=== PATIENT | female | born 1960 | race African-American/Black ===

== ENCOUNTER 2017-02-14 14:58 | Inpatient (IN) | payer MEDICAID ==
[~2017-02-14] VITALS: Ht 170.2 cm; Wt 80.6 kg
[~2017-02-14 14:58] MED LIST: METF-312 PO; QUET300T3
[2017-02-14] MEDS ORDERED: SODIUM CHLORIDE 0.9% 1,000 ML IVB ONE (15:26)
[2017-02-14 16:06] LABS: Hematocrit 47.2 % (36.0-46.0); Hemoglobin 15.1 g/dL (12.2-16.2); Mean Corpuscular Hemoglobin 27.5 pg (28.0-32.0); Mean Corpuscular Hgb Conc. 31.9 g/dL (32.0-36.0); Mean Platelet Volume 9.6 fL (7.4-10.4); Platelet Count (auto) 245 10^3/uL (140-450); Red Cell Distribution Width 15.6 % (11.6-16.0); SUSPECT VIEW TRANSMISSION; White Blood Cell 18.2 10^3/uL (4.4-10.8)
[2017-02-14 16:24] LABS: Acetaminophen < 2.0 ug/mL (10-30); Salicylate 1.8 mg/dL (2.8-20.0)
[2017-02-14 16:26] LABS: Alkaline Phosphatase 172 U/L (45-117); Anion Gap 18 (5-15); Aspartate Aminotransferase 65 U/L (15-37); BUN/Creatinine Ratio 15.6; Bilirubin, Total 0.9 mg/dL (0.2-1.0); Blood Urea Nitrogen 31 mg/dL (7-18); Carbon Dioxide 16 mmol/L (21-32); Chloride 111 mmol/L (98-107); GFR African American 33 mL/min; GFR Non-African American 27 mL/min; Magnesium 3.2 mg/dL (1.6-2.6); Metamyelocytes % 0; Myelocytes % 0; Potassium 4.6 mmol/L (3.5-5.1); Promyelocytes % 0; Reactive Lymphocytes 0; Sodium 145 mmol/L (136-145); Total Protein 8.2 g/dL (6.4-8.2)
[2017-02-14 16:30] LABS: Urine Bilirubin Negative (Negative); Urine Color Yellow (Yellow); Urine Hyaline Cast FEW /lpf (0 - 2); Urine Nitrite Negative (Negative); Urine RBC 7 /hpf (0 - 4); Urine Squamous Epithelial Cell FEW /hpf (<5); Urine Urobilinogen Normal (Negative); Urine pH 5.5 (5.0-8.0)
[2017-02-14 16:34] LABS: Urine Blood 2+ /uL (Negative); Urine Glucose 4+ mg/dL (Normal); Urine Ketone 1+ (Negative)
[2017-02-14 16:57] LABS: INR 1.04 (0.9-1.15); Partial Thromboplastin Time 20.7 sec (22.64-33.71); Prothrombin Time 11.2 sec (9.37-12.3)
[2017-02-14 17:12] LABS: Glucose 599 mg/dL (74-106)
[2017-02-14 17:50] LABS: Platelet Estimate Adequate
[2017-02-14] MEDS ORDERED: cefTRIAXone 1GM/50ML D5W 50 ML IV ONE (18:30)
[2017-02-14] MEDS ORDERED: InsuLIN R (HUMAN) 100 UNITS in SODIUM CHL 0.9% 99 ML IV SCH (21:03)
[2017-02-14] MEDS ORDERED: SODIUM CHLORIDE 0.9% 1,000 ML IV SCH (21:07)
[2017-02-14] MEDS ORDERED: DEXTROSE (50%) 50ML SYRG IV PRN (21:15)
[2017-02-14] MEDS ORDERED: NALOXONE HCL 0.4 MG/ML VIAL IV ONE (21:45)
[2017-02-14 21:46] LABS: Calcium 8.4 mg/dL (8.5-10.1); Potassium 4.7 mmol/L (3.5-5.1)
[2017-02-14 21:50] LABS: BUN/Creatinine Ratio 18.6
[2017-02-14] MEDS ORDERED: ETOMIDATE (2MG/ML) 20ML VIAL IV ONE ×2 (21:52→22:00)
[2017-02-14] MEDS ORDERED: SUCCINYLCHOLINE CHLORIDE 20 MG/ML 10ML VIAL IV ONE ×2 (21:52→22:00)
[2017-02-14] MEDS ORDERED: PROPOFOL 100 ML IV ONE (21:58)
[2017-02-14] MEDS ORDERED: VANCOMYCIN PER PHARMACY 0 MG IV SCH (22:45)
[2017-02-14] MEDS ORDERED: ONDANSETRON HCL 4 MG/2 ML VIAL IV PRN (22:45)
[2017-02-14] MEDS ORDERED: SODIUM BICARBONATE 50ML VIAL 50 ML in SOD CHL 0.45% 1,000 ML IV SCH (22:45)
[2017-02-14] MEDS ORDERED: MORPHINE SULF INJ 2 MG/ML SYRINGE 1ML IV PRN (22:45)
[2017-02-14] MEDS ORDERED: NITROGLYCERIN 0.4 MG SL TAB SL PRN (22:45)
[2017-02-14] MEDS ORDERED: SODIUM BICARBONATE 8.4 % INJ 50ML VIAL IV ONE (22:45)
[2017-02-14] MEDS ORDERED: SODIUM CHLORIDE 0.9% 500 ML IV ONE (22:45)
[2017-02-14] MEDS ORDERED: PANTOPRAZOLE SODIUM 40 MG/10 ML VIAL IV ONE (22:45)
[2017-02-14] MEDS: ACCU-CHEK COMFORT CURVE STRIP VI SCH ×2 (22:50→23:09)
[2017-02-14] MEDS: fentaNYL Drip 2500mCg/250mlNS 250 ML IV SCH (23:26)
[2017-02-14] MEDS ORDERED: VANCOMYCIN 1GM/250ML D5W 250 ML IV ONE (23:30)
[2017-02-15] VITALS (100 sets, daily range): BP systolic 90–134; BP diastolic 41–91
[2017-02-15] MEDS ORDERED: PROPOFOL 100 ML IV ONE (00:53)
[2017-02-15] MEDS: ACCU-CHEK COMFORT CURVE STRIP VI SCH ×10 (01:00→23:42)
[2017-02-15] MEDS: PROPOFOL 100 ML IV SCH ×6 (01:06→23:47)
[2017-02-15] MEDS ORDERED: SODIUM BICARBONATE 8.4 % INJ 50ML VIAL IV ONE (01:54)
[2017-02-15] MEDS: PIPERACILLIN-TAZOB 2.25GM 50 ML IV SCH ×2 (02:50→05:49)
[2017-02-15] MEDS ORDERED: DEXTROSE (50%) 50ML SYRG IV PRN (03:30)
[2017-02-15 03:47] LABS: Basophils # (auto) 0 uL; Eosinophils # (auto) 0 uL; Hematocrit 40.4 % (36.0-46.0); Lymphocytes % (auto) 6.8 % (10.0-50.0); Mean Corpuscular Hemoglobin 27.6 pg (28.0-32.0); Mean Corpuscular Hgb Conc. 32.1 g/dL (32.0-36.0); Mean Corpuscular Volume 86.2 fL (80.0-100.0); Mean Platelet Volume 9.4 fL (7.4-10.4); Monocytes # (auto) 0.7 uL; Monocytes % (auto) 4.9 % (0.0-12.0); Neutrophils # (auto) 12.6 uL; Neutrophils % (auto) 88.3 % (37.0-80.0); Platelet Count (auto) 221 10^3/uL (140-450); Red Cell Distribution Width 15.3 % (11.6-16.0); SUSPECT VIEW TRANSMISSION; White Blood Cell 14.3 10^3/uL (4.4-10.8)
[2017-02-15 03:51] LABS: BUN/Creatinine Ratio 16.3; Calcium 8.3 mg/dL (8.5-10.1); Potassium 4.1 mmol/L (3.5-5.1)
[2017-02-15 03:54] LABS: Bilirubin, Total 0.4 mg/dL (0.2-1.0); Total Protein 6.7 g/dL (6.4-8.2)
[2017-02-15] MEDS: InsuLIN REG 1unit/0.01ml Soln (100units/ml) SC SCH ×6 (04:00→23:42)
[2017-02-15 04:20] LABS: Albumin 2.4 g/dL (3.4-5.0)
[2017-02-15] MEDS: ACETAMINOPHEN 325 MG TAB PO PRN (05:48)
[2017-02-15] MEDS: PIPERACILLIN-TAZOB 3.375GM 100 ML IV SCH ×2 (06:56→12:17)
[2017-02-15] MEDS: PANTOPRAZOLE SODIUM 40 MG/10 ML VIAL IV SCH (11:17)
[2017-02-15] MEDS: ENOXAPARIN SOD 40 MG/0.4 ML SYRINGE SC SCH (11:17)
[2017-02-15] MEDS ORDERED: BUMETANIDE (0.25MG/ML) 4 ML VIAL IV ONE (14:00)
[2017-02-15] MEDS ORDERED: POTASSIUM CHL 20MEQ/100ML 100 ML IV SCH (14:00)
[2017-02-15] MEDS: D5W/SOD CHL 0.45%/KCL 20MEQ 1,000 ML IV SCH (14:14)
[2017-02-15] MEDS: POTASSIUM CHLORIDE 20 MEQ, LIDOCAINE 1% (LOCAL ANESTH.) 2 ML in SODIUM CHL 0.9% 100 ML IV SCH ×3 (14:28→19:46)
[2017-02-15 14:52] LABS: B-Type Natriuretic Peptide 36.4 pg/mL (0-100)
[2017-02-15 15:46] LABS: Temperature: 23.9 C (20.0-25.0)
[2017-02-15] MEDS: VANCOMYCIN 1GM/250ML D5W 250 ML IV SCH (17:15)
[2017-02-15] MEDS ORDERED: Diabetisource AC 1 Liter GT SCH (17:45)
[2017-02-15] MEDS: FREE WATER GT SCH (20:00)
[2017-02-15] MEDS: PIPERACILLIN-TAZO 4.5GM 100 ML IV SCH (20:05)
[2017-02-15] MEDS: Diabetisource AC 1 Liter GT SCH (20:20)
[2017-02-15] MEDS: fentaNYL Drip 2500mCg/250mlNS 250 ML IV SCH (22:34)
[2017-02-16] VITALS (103 sets, daily range): BP systolic 89–136; BP diastolic 48–79
[2017-02-16] MEDS: FREE WATER GT SCH ×4 (00:57→18:00)
[2017-02-16] MEDS: PIPERACILLIN-TAZO 4.5GM 100 ML IV SCH ×4 (01:06→18:00)
[2017-02-16] MEDS: PROPOFOL 100 ML IV SCH ×3 (03:23→13:21)
[2017-02-16 03:43] LABS: Hematocrit 37.6 % (36.0-46.0); Mean Corpuscular Hemoglobin 27.5 pg (28.0-32.0); Mean Corpuscular Hgb Conc. 31.9 g/dL (32.0-36.0); Mean Corpuscular Volume 86.2 fL (80.0-100.0); Mean Platelet Volume 9.4 fL (7.4-10.4); Platelet Count (auto) 192 10^3/uL (140-450); Red Cell Distribution Width 15.3 % (11.6-16.0); SUSPECT VIEW TRANSMISSION; White Blood Cell 12.6 10^3/uL (4.4-10.8)
[2017-02-16] MEDS: InsuLIN REG 1unit/0.01ml Soln (100units/ml) SC SCH ×4 (04:12→19:00)
[2017-02-16] MEDS: ACCU-CHEK COMFORT CURVE STRIP VI SCH ×4 (04:12→18:00)
[2017-02-16 04:17] LABS: Albumin 2.1 g/dL (3.4-5.0); BUN/Creatinine Ratio 13.6; Bilirubin, Total 1.3 mg/dL (0.2-1.0); Calcium 8.2 mg/dL (8.5-10.1); Phosphorus 2.1 mg/dL (2.5-4.90); Potassium 4.2 mmol/L (3.5-5.1); Total Protein 5.5 g/dL (6.4-8.2)
[2017-02-16] MEDS: D5W/SOD CHL 0.45%/KCL 20MEQ 1,000 ML IV SCH ×2 (04:31→16:40)
[2017-02-16 04:51] LABS: Metamyelocytes % 0; Myelocytes % 0; Promyelocytes % 0; Reactive Lymphocytes 0
[2017-02-16 05:28] LABS: Platelet Estimate Adequate
[2017-02-16 05:29] LABS: RBC Morphology Normal
[2017-02-16] MEDS: PANTOPRAZOLE SODIUM 40 MG/10 ML VIAL IV SCH (10:57)
[2017-02-16] MEDS: VANCOMYCIN 1GM/250ML D5W 250 ML IV SCH (10:58)
[2017-02-16] MEDS: ENOXAPARIN SOD 40 MG/0.4 ML SYRINGE SC SCH (10:58)
[2017-02-16] MEDS ORDERED: BUMETANIDE (0.25 MG/ML) INJ 10ML IV SCH (11:00)
[2017-02-16] MEDS ORDERED: DEXTROSE (50%) 50ML SYRG IV PRN (11:00)
[2017-02-16] MEDS ORDERED: POTASSIUM PHOSPHATE 22 MEQ in SODIUM CHL 0.9% 100 ML IV ONE (11:15)
[2017-02-16] MEDS: BUMETANIDE (0.25MG/ML) 4 ML VIAL IV SCH ×2 (13:20→18:00)
[2017-02-16] MEDS: fentaNYL Drip 2500mCg/250mlNS 250 ML IV SCH (21:53)
[2017-02-17] VITALS (93 sets, daily range): BP systolic 82–129; BP diastolic 40–88
[2017-02-17] MEDS: FREE WATER GT SCH ×5 (00:08→22:00)
[2017-02-17] MEDS: PIPERACILLIN-TAZO 4.5GM 100 ML IV SCH ×4 (00:08→17:42)
[2017-02-17] MEDS: InsuLIN REG 1unit/0.01ml Soln (100units/ml) SC SCH ×4 (00:09→18:02)
[2017-02-17] MEDS: ACCU-CHEK COMFORT CURVE STRIP VI SCH ×4 (00:09→18:02)
[2017-02-17 04:31] LABS: Calcium 8.5 mg/dL (8.5-10.1); Potassium 4.1 mmol/L (3.5-5.1)
[2017-02-17 04:34] LABS: BUN/Creatinine Ratio 11.2
[2017-02-17 04:36] LABS: Bilirubin, Total 1.8 mg/dL (0.2-1.0); Total Protein 6.8 g/dL (6.4-8.2)
[2017-02-17 05:13] LABS: Albumin 1.8 g/dL (3.4-5.0)
[2017-02-17] MEDS: BUMETANIDE (0.25MG/ML) 4 ML VIAL IV SCH ×2 (06:00→17:41)
[2017-02-17] MEDS: D5W/SOD CHL 0.45%/KCL 20MEQ 1,000 ML IV SCH ×2 (06:02→08:55)
[2017-02-17] MEDS: VANCOMYCIN 1,250 MG in D5W 5% 250 ML IV SCH ×2 (09:03→21:09)
[2017-02-17] MEDS: ENOXAPARIN SOD 40 MG/0.4 ML SYRINGE SC SCH (09:35)
[2017-02-17] MEDS: PANTOPRAZOLE SODIUM 40 MG/10 ML VIAL IV SCH (09:35)
[2017-02-17] MEDS: Diabetisource AC 1 Liter GT SCH (10:00)
[2017-02-17 14:04] LABS: B-Type Natriuretic Peptide 12.68 pg/mL (0-100)
[2017-02-17 14:09] LABS: Temperature: 23.8 C (20.0-25.0)
[2017-02-17] MEDS: fentaNYL Drip 2500mCg/250mlNS 250 ML IV SCH (21:18)
[2017-02-17] MEDS: PROPOFOL 100 ML IV SCH (21:19)
[2017-02-18] VITALS (98 sets, daily range): BP systolic 86–131; BP diastolic 38–98
[2017-02-18] MEDS: ACCU-CHEK COMFORT CURVE STRIP VI SCH ×4 (00:02→17:44)
[2017-02-18] MEDS: InsuLIN REG 1unit/0.01ml Soln (100units/ml) SC SCH ×4 (00:02→17:47)
[2017-02-18] MEDS: PIPERACILLIN-TAZO 4.5GM 100 ML IV SCH ×4 (00:03→17:39)
[2017-02-18] MEDS: PROPOFOL 100 ML IV SCH ×7 (01:03→21:40)
[2017-02-18] MEDS: BUMETANIDE (0.25MG/ML) 4 ML VIAL IV SCH ×2 (05:56→17:38)
[2017-02-18] MEDS: FREE WATER GT SCH ×3 (05:56→22:00)
[2017-02-18] MEDS: VANCOMYCIN 1,250 MG in D5W 5% 250 ML IV SCH ×2 (09:16→21:30)
[2017-02-18] MEDS: PANTOPRAZOLE SODIUM 40 MG/10 ML VIAL IV SCH (09:33)
[2017-02-18] MEDS: ENOXAPARIN SOD 40 MG/0.4 ML SYRINGE SC SCH (09:33)
[2017-02-18] MEDS: Diabetisource AC 1 Liter GT SCH (10:00)
[2017-02-18] MEDS: fentaNYL Drip 2500mCg/250mlNS 250 ML IV SCH ×2 (11:35→21:33)
[2017-02-19] VITALS (102 sets, daily range): BP systolic 85–129; BP diastolic 40–77
[2017-02-19] MEDS: InsuLIN REG 1unit/0.01ml Soln (100units/ml) SC SCH ×4 (00:10→17:39)
[2017-02-19] MEDS: ACCU-CHEK COMFORT CURVE STRIP VI SCH ×4 (00:11→17:34)
[2017-02-19] MEDS: PROPOFOL 100 ML IV SCH ×5 (01:37→17:40)
[2017-02-19] MEDS: PIPERACILLIN-TAZO 4.5GM 100 ML IV SCH ×4 (06:00→18:00)
[2017-02-19] MEDS: FREE WATER GT SCH ×3 (06:00→19:58)
[2017-02-19] MEDS: BUMETANIDE (0.25MG/ML) 4 ML VIAL IV SCH ×2 (06:00→18:00)
[2017-02-19] MEDS ORDERED: HALOPERIDOL LACTATE 5 MG/ML INJ VIAL IM ONE (08:30)
[2017-02-19] MEDS: fentaNYL Drip 2500mCg/250mlNS 250 ML IV SCH ×3 (08:31→12:24)
[2017-02-19] MEDS: VANCOMYCIN 1GM/250ML D5W 250 ML IV SCH ×2 (09:05→16:54)
[2017-02-19] MEDS: ENOXAPARIN SOD 40 MG/0.4 ML SYRINGE SC SCH (10:17)
[2017-02-19] MEDS: PANTOPRAZOLE SODIUM 40 MG/10 ML VIAL IV SCH (10:17)
[2017-02-19] MEDS: MIDAZOLAM DRIP 100 mg/100mL NS 100 ML IV SCH (12:08)
[2017-02-20] VITALS (105 sets, daily range): BP systolic 87–129; BP diastolic 42–68
[2017-02-20] MEDS: InsuLIN REG 1unit/0.01ml Soln (100units/ml) SC SCH ×5 (00:37→23:56)
[2017-02-20] MEDS: MIDAZOLAM DRIP 100 mg/100mL NS 100 ML IV SCH ×2 (00:42→18:09)
[2017-02-20] MEDS: VANCOMYCIN 1GM/250ML D5W 250 ML IV SCH ×3 (02:03→18:09)
[2017-02-20] MEDS: PIPERACILLIN-TAZO 4.5GM 100 ML IV SCH ×5 (06:00→23:56)
[2017-02-20] MEDS: FREE WATER GT SCH ×3 (06:00→22:00)
[2017-02-20] MEDS: BUMETANIDE (0.25MG/ML) 4 ML VIAL IV SCH ×2 (06:31→18:31)
[2017-02-20] MEDS: ACCU-CHEK COMFORT CURVE STRIP VI SCH ×5 (06:31→23:56)
[2017-02-20] MEDS: fentaNYL Drip 2500mCg/250mlNS 250 ML IV SCH ×2 (08:06→18:09)
[2017-02-20] MEDS: PROPOFOL 100 ML IV SCH ×3 (08:07→21:12)
[2017-02-20 08:37] LABS: Basophils # (auto) 0 uL; Basophils % (auto) 0.2 % (0.0-2.0); Eosinophils # (auto) 0.3 uL; Eosinophils % (auto) 2.5 % (0.0-7.0); Hemoglobin 11.1 g/dL (12.2-16.2); Lymphocytes # (auto) 1.5 uL; Lymphocytes % (auto) 14.5 % (10.0-50.0); Mean Corpuscular Hemoglobin 27.2 pg (28.0-32.0); Mean Corpuscular Hgb Conc. 32.7 g/dL (32.0-36.0); Mean Corpuscular Volume 83.2 fL (80.0-100.0); Mean Platelet Volume 9.4 fL (7.4-10.4); Monocytes # (auto) 0.8 uL; Monocytes % (auto) 8.1 % (0.0-12.0); Neutrophils # (auto) 7.5 uL; Neutrophils % (auto) 74.7 % (37.0-80.0); Platelet Count (auto) 231 10^3/uL (140-450); Red Cell Distribution Width 14.7 % (11.6-16.0)
[2017-02-20] MEDS: PANTOPRAZOLE SODIUM 40 MG/10 ML VIAL IV SCH (09:45)
[2017-02-20] MEDS: ENOXAPARIN SOD 40 MG/0.4 ML SYRINGE SC SCH (09:45)
[2017-02-20 10:14] LABS: Albumin 1.5 g/dL (3.4-5.0); Calcium 8.7 mg/dL (8.5-10.1); Total Protein 6.7 g/dL (6.4-8.2)
[2017-02-20 10:27] LABS: Potassium 2.9 mmol/L (3.5-5.1)
[2017-02-20] MEDS: POTASSIUM CHL 20MEQ/100ML 100 ML IV SCH ×4 (10:58→22:50)
[2017-02-20] MEDS: LACTULOSE 20Gm/30ML SOLN PO SCH ×2 (18:10→21:22)
[2017-02-21] VITALS (100 sets, daily range): BP systolic 84–125; BP diastolic 44–73
[2017-02-21] MEDS: VANCOMYCIN 1GM/250ML D5W 250 ML IV SCH ×3 (01:30→17:32)
[2017-02-21 04:13] LABS: BUN/Creatinine Ratio 16.3; Calcium 8.4 mg/dL (8.5-10.1); Potassium 3.4 mmol/L (3.5-5.1)
[2017-02-21] MEDS: InsuLIN REG 1unit/0.01ml Soln (100units/ml) SC SCH ×3 (05:22→17:33)
[2017-02-21] MEDS: ACCU-CHEK COMFORT CURVE STRIP VI SCH ×3 (05:24→17:39)
[2017-02-21] MEDS: FREE WATER GT SCH ×3 (05:25→21:30)
[2017-02-21] MEDS: PIPERACILLIN-TAZO 4.5GM 100 ML IV SCH ×3 (05:40→17:39)
[2017-02-21] MEDS: BUMETANIDE (0.25MG/ML) 4 ML VIAL IV SCH ×2 (05:40→17:38)
[2017-02-21] MEDS: LACTULOSE 20Gm/30ML SOLN PO SCH ×2 (05:41→21:54)
[2017-02-21 07:27] LABS: Allen Test Modified; Base Excess 10.5 mmol/L (-2.0-2.0); Blood 02Sat 93.9 % (96-100); Blood AaDO2 171.3 mmHg (<26.0); Blood COHb 0.7 % (<2.0); HCO3 33.8 mmol/L (22-26.0); MODE VENT - A/C; O2Hb 93.2 % (95.0-100.0); PCO2 40.3 mmHg (35.0-45.0); PIP 29; PO2 67.6 mmHg (65.0-85.0); Sample Type Arterial; pH 7.542 (7.350-7.450)
[2017-02-21] MEDS: PANTOPRAZOLE SODIUM 40 MG/10 ML VIAL IV SCH (09:27)
[2017-02-21] MEDS: fentaNYL Drip 2500mCg/250mlNS 250 ML IV SCH ×2 (09:31→19:20)
[2017-02-21] MEDS: ENOXAPARIN SOD 40 MG/0.4 ML SYRINGE SC SCH (10:01)
[2017-02-21] MEDS: MIDAZOLAM DRIP 100 mg/100mL NS 100 ML IV SCH (12:59)
[2017-02-21] MEDS: PROPOFOL 100 ML IV SCH (13:00)
[2017-02-21] MEDS ORDERED: CLINIMIX PER PHARMACY 0 ML IV SCH (14:00)
[2017-02-21 15:23] LABS: Magnesium 2.7 mg/dL (1.6-2.6); Phosphorus 1.8 mg/dL (2.5-4.90)
[2017-02-21 15:37] LABS: Albumin 1.6 g/dL (3.4-5.0)
[2017-02-21] MEDS ORDERED: SODIUM PHOSPH 40 MEQ (30MMOL) IN NS 250 ML IV ONE (16:15)
[2017-02-21] MEDS ORDERED: POTASSIUM CHL 20MEQ/100ML 100 ML IV ONE (16:15)
[2017-02-21] MEDS: SOD CHL 0.45% WITH 20MEQ KCL 1,000 ML IV SCH (16:15)
[2017-02-21] MEDS ORDERED: CLINIMIX PER PHARMACY IV NR ×6 (20:00)
[2017-02-22] VITALS (105 sets, daily range): BP systolic 79–124; BP diastolic 46–67
[2017-02-22] MEDS: InsuLIN REG 1unit/0.01ml Soln (100units/ml) SC SCH ×4 (00:31→18:25)
[2017-02-22] MEDS: VANCOMYCIN 1GM/250ML D5W 250 ML IV SCH ×3 (00:57→17:00)
[2017-02-22] MEDS: PROPOFOL 100 ML IV SCH (03:00)
[2017-02-22] MEDS: MIDAZOLAM DRIP 100 mg/100mL NS 100 ML IV SCH (03:00)
[2017-02-22] MEDS: SOD CHL 0.45% WITH 20MEQ KCL 1,000 ML IV SCH ×2 (03:20→18:05)
[2017-02-22 04:12] LABS: Albumin 1.5 g/dL (3.4-5.0); BUN/Creatinine Ratio 16.9; Bilirubin, Total 0.8 mg/dL (0.2-1.0); Calcium 8.1 mg/dL (8.5-10.1); Magnesium 2.2 mg/dL (1.6-2.6); Phosphorus 2.9 mg/dL (2.5-4.90); Total Protein 6.2 g/dL (6.4-8.2)
[2017-02-22 04:21] LABS: Potassium 2.8 mmol/L (3.5-5.1)
[2017-02-22] MEDS: FREE WATER GT SCH ×3 (05:33→22:00)
[2017-02-22] MEDS: PIPERACILLIN-TAZO 4.5GM 100 ML IV SCH ×5 (05:45→23:58)
[2017-02-22] MEDS: fentaNYL Drip 2500mCg/250mlNS 250 ML IV SCH ×2 (05:45→18:31)
[2017-02-22] MEDS: ACCU-CHEK COMFORT CURVE STRIP VI SCH ×4 (05:55→18:06)
[2017-02-22] MEDS: BUMETANIDE (0.25MG/ML) 4 ML VIAL IV SCH ×2 (06:00→18:00)
[2017-02-22] MEDS: POTASSIUM CHL 20MEQ/100ML 100 ML IV SCH ×2 (06:40→10:22)
[2017-02-22] MEDS: LACTULOSE 20Gm/30ML SOLN PO SCH ×2 (10:00→22:00)
[2017-02-22] MEDS: PANTOPRAZOLE SODIUM 40 MG/10 ML VIAL IV SCH (10:22)
[2017-02-22] MEDS: ENOXAPARIN SOD 40 MG/0.4 ML SYRINGE SC SCH (10:23)
[2017-02-22 11:59] LABS: Allen Test Modified; Base Excess 7.8 mmol/L (-2.0-2.0); Blood 02Sat 95.2 % (96-100); Blood AaDO2 147.6 mmHg (<26.0); Blood COHb 0.4 % (0.5-1.5); HCO3 32.7 mmol/L (22-26.0); MODE VENT - A/C; O2Hb 94.8 % (95.0-100.0); PCO2 46.9 mmHg (35.0-45.0); PIP 30; PO2 83.7 mmHg (65.0-85.0); Sample Type Arterial; pH 7.461 (7.350-7.450)
[2017-02-22] MEDS ORDERED: DEXTROSE (50%) 50ML SYRG IV SCH (13:45)
[2017-02-22] MEDS: METOCLOPRAMIDE HCL 10 MG/10ml ORAL soln GT PRN (14:07)
[2017-02-22] MEDS ORDERED: SODIUM CHLORIDE 0.9% 1,000 ML IV SCH (17:45)
[2017-02-22] MEDS ORDERED: CLINIMIX PER PHARMACY IV NR ×6 (20:00)
[2017-02-22] MEDS: PRO-STAT 64 30ML GT SCH (22:00)
[2017-02-22] MEDS ORDERED: PHENYLEPHRINE IV 250 ML IV ONE (23:38)
[2017-02-22] MEDS: PHENYLEPHRINE INJ 20 MG in SODIUM CHL 0.9% 250 ML IV SCH (23:49)
[2017-02-23] VITALS (104 sets, daily range): BP systolic 87–144; BP diastolic 30–80
[2017-02-23] MEDS: ACCU-CHEK COMFORT CURVE STRIP VI SCH ×4 (00:11→17:28)
[2017-02-23] MEDS: InsuLIN REG 1unit/0.01ml Soln (100units/ml) SC SCH ×5 (00:11→23:53)
[2017-02-23] MEDS: VANCOMYCIN 1GM/250ML D5W 250 ML IV SCH ×3 (01:00→16:32)
[2017-02-23] MEDS: PROPOFOL 100 ML IV SCH ×2 (01:28→05:00)
[2017-02-23] MEDS: METOCLOPRAMIDE HCL 10 MG/10ml ORAL soln GT PRN ×2 (02:00→10:58)
[2017-02-23] MEDS: MIDAZOLAM DRIP 100 mg/100mL NS 100 ML IV SCH ×3 (03:00→23:14)
[2017-02-23 03:42] LABS: Basophils # (auto) 0 uL; Basophils % (auto) 0.3 % (0.0-2.0); DEFINITIVE VIEW TRANSMISSION; Eosinophils # (auto) 0.2 uL; Eosinophils % (auto) 1.5 % (0.0-7.0); Hematocrit 32.9 % (36.0-46.0); Hemoglobin 10.4 g/dL (12.2-16.2); Lymphocytes # (auto) 1.9 uL; Lymphocytes % (auto) 17.2 % (10.0-50.0); Mean Corpuscular Hemoglobin 26.9 pg (28.0-32.0); Mean Corpuscular Hgb Conc. 31.5 g/dL (32.0-36.0); Mean Corpuscular Volume 85.4 fL (80.0-100.0); Mean Platelet Volume 9.1 fL (7.4-10.4); Monocytes # (auto) 0.6 uL; Monocytes % (auto) 5.7 % (0.0-12.0); Neutrophils # (auto) 8.1 uL; Neutrophils % (auto) 75.3 % (37.0-80.0); Platelet Count (auto) 380 10^3/uL (140-450); Red Cell Distribution Width 14.5 % (11.6-16.0); White Blood Cell 10.8 10^3/uL (4.4-10.8)
[2017-02-23 04:06] LABS: BUN/Creatinine Ratio 15.5; Calcium 8.4 mg/dL (8.5-10.1); Magnesium 2.1 mg/dL (1.6-2.6); Phosphorus 2.1 mg/dL (2.5-4.90); Potassium 3.2 mmol/L (3.5-5.1)
[2017-02-23] MEDS: fentaNYL Drip 2500mCg/250mlNS 250 ML IV SCH ×2 (05:00→16:19)
[2017-02-23] MEDS ORDERED: DEXTROSE (50%) 50ML SYRG IV SCH (05:30)
[2017-02-23 05:55] LABS: Albumin 1.6 g/dL (3.4-5.0)
[2017-02-23] MEDS ORDERED: ACCU-CHEK COMFORT CURVE STRIP VI SCH (06:00)
[2017-02-23] MEDS: BUMETANIDE (0.25MG/ML) 4 ML VIAL IV SCH ×3 (06:00→22:43)
[2017-02-23] MEDS ORDERED: InsuLIN REG 1unit/0.01ml Soln (100units/ml) SC SCH (06:00)
[2017-02-23] MEDS: SOD CHL 0.45% WITH 20MEQ KCL 1,000 ML IV SCH (06:08)
[2017-02-23] MEDS: PIPERACILLIN-TAZO 4.5GM 100 ML IV SCH ×3 (06:08→18:00)
[2017-02-23] MEDS: FREE WATER GT SCH ×3 (06:09→22:00)
[2017-02-23] MEDS ORDERED: POTASSIUM CHLORIDE 40 MEQ, LIDOCAINE 1% (LOCAL ANESTH.) 4 ML in SODIUM CHL 0.9% 250 ML IV ONE (08:30)
[2017-02-23] MEDS: PANTOPRAZOLE SODIUM 40 MG/10 ML VIAL IV SCH (09:34)
[2017-02-23] MEDS: LACTULOSE 20Gm/30ML SOLN PO SCH ×2 (09:36→22:00)
[2017-02-23] MEDS: PRO-STAT 64 30ML GT SCH ×2 (09:36→22:00)
[2017-02-23] MEDS: ENOXAPARIN SOD 40 MG/0.4 ML SYRINGE SC SCH (09:37)
[2017-02-23] MEDS: PHENYLEPHRINE INJ 20 MG in SODIUM CHL 0.9% 250 ML IV SCH ×2 (09:37→19:28)
[2017-02-23] MEDS: SOD CHL 0.9%/ KCL 40MEQ 1,000 ML IV SCH (16:07)
[2017-02-23] MEDS ORDERED: CLINIMIX PER PHARMACY IV NR ×6 (20:00)
[2017-02-23 23:20] LABS: Urine Bilirubin Negative (Negative); Urine Blood TRACE /uL (Negative); Urine Color Yellow (Yellow); Urine Glucose 4+ mg/dL (Normal); Urine Ketone Negative (Negative); Urine Nitrite Negative (Negative); Urine RBC 25 /hpf (0 - 4); Urine Squamous Epithelial Cell FEW /hpf (<5)
[2017-02-24] VITALS (109 sets, daily range): BP systolic 79–183; BP diastolic 34–111
[2017-02-24] MEDS: PHENYLEPHRINE INJ 20 MG in SODIUM CHL 0.9% 250 ML IV SCH ×3 (00:01→17:47)
[2017-02-24] MEDS: PIPERACILLIN-TAZO 4.5GM 100 ML IV SCH ×4 (00:08→18:49)
[2017-02-24] MEDS: ACCU-CHEK COMFORT CURVE STRIP VI SCH ×6 (00:08→20:11)
[2017-02-24] MEDS: ACETAMINOPHEN 650 MG RECT SUPP PR PRN ×2 (00:09→15:05)
[2017-02-24] MEDS: VANCOMYCIN 1GM/250ML D5W 250 ML IV SCH ×3 (01:14→17:39)
[2017-02-24] MEDS: PROPOFOL 100 ML IV SCH ×6 (01:28→22:30)
[2017-02-24] MEDS: fentaNYL Drip 2500mCg/250mlNS 250 ML IV SCH ×2 (02:36→14:56)
[2017-02-24] MEDS: SOD CHL 0.9%/ KCL 40MEQ 1,000 ML IV SCH ×3 (04:00→14:56)
[2017-02-24 04:38] LABS: Potassium 4.1 mmol/L (3.5-5.1)
[2017-02-24 04:39] LABS: Albumin 1.7 g/dL (3.4-5.0); BUN/Creatinine Ratio 10.8; Bilirubin, Total 1.4 mg/dL (0.2-1.0); Calcium 8.2 mg/dL (8.5-10.1); Phosphorus 2.6 mg/dL (2.5-4.90); Total Protein 6.9 g/dL (6.4-8.2)
[2017-02-24] MEDS: FREE WATER GT SCH (06:00)
[2017-02-24] MEDS: BUMETANIDE (0.25MG/ML) 4 ML VIAL IV SCH ×2 (06:00→18:43)
[2017-02-24] MEDS: InsuLIN REG 1unit/0.01ml Soln (100units/ml) SC SCH ×5 (06:06→20:10)
[2017-02-24] MEDS: MIDAZOLAM DRIP 100 mg/100mL NS 100 ML IV SCH ×2 (06:15→15:05)
[2017-02-24] MEDS: MORPHINE SULF INJ 2 MG/ML SYRINGE 1ML IV PRN (06:33)
[2017-02-24 06:44] LABS: Basophils # (auto) 0 uL; DEFINITIVE VIEW TRANSMISSION; Eosinophils # (auto) 0 uL; Hematocrit 37.5 % (36.0-46.0); Lymphocytes # (auto) 0.5 uL; Lymphocytes % (auto) 4.4 % (10.0-50.0); Mean Corpuscular Hemoglobin 26.9 pg (28.0-32.0); Mean Corpuscular Volume 84.2 fL (80.0-100.0); Mean Platelet Volume 9.1 fL (7.4-10.4); Monocytes # (auto) 0.2 uL; Monocytes % (auto) 1.6 % (0.0-12.0); Neutrophils # (auto) 10.5 uL; Platelet Count (auto) 433 10^3/uL (140-450); White Blood Cell 11.1 10^3/uL (4.4-10.8)
[2017-02-24] MEDS: PRO-STAT 64 30ML GT SCH ×2 (10:00→22:00)
[2017-02-24] MEDS: LACTULOSE 20Gm/30ML SOLN PO SCH ×2 (10:20→22:45)
[2017-02-24] MEDS: PANTOPRAZOLE SODIUM 40 MG/10 ML VIAL IV SCH (10:20)
[2017-02-24] MEDS: ENOXAPARIN SOD 40 MG/0.4 ML SYRINGE SC SCH (10:20)
[2017-02-24] MEDS ORDERED: DEXTROSE (50%) 50ML SYRG IV PRN (13:00)
[2017-02-24] MEDS: ALBUTEROL SULF 2.5 MG/0.5ML(0.5%) NEB SOLN NEB PRN ×3 (13:53→22:20)
[2017-02-24] MEDS: IPRATROPIUM BROM 0.5 MG/2.5ML INH SOL NEB SCH ×3 (13:53→22:20)
[2017-02-24] MEDS: ACETYLCYSTEINE 20%(200MG/ML) SOL 4ML NEB SCH ×2 (13:54→22:20)
[2017-02-24] MEDS ORDERED: TPN PER PHARMACY IV NR ×11 (20:00)
[2017-02-25] VITALS (99 sets, daily range): BP systolic 70–161; BP diastolic 37–119
[2017-02-25] MEDS: InsuLIN REG 1unit/0.01ml Soln (100units/ml) SC SCH ×9 (00:14→23:38)
[2017-02-25] MEDS: ACCU-CHEK COMFORT CURVE STRIP VI SCH ×8 (00:16→23:37)
[2017-02-25] MEDS: PIPERACILLIN-TAZO 4.5GM 100 ML IV SCH ×5 (00:18→23:37)
[2017-02-25] MEDS: SOD CHL 0.9%/ KCL 40MEQ 1,000 ML IV SCH ×3 (00:25→13:30)
[2017-02-25] MEDS: ACETAMINOPHEN 650 MG RECT SUPP PR PRN (00:58)
[2017-02-25] MEDS: PHENYLEPHRINE INJ 20 MG in SODIUM CHL 0.9% 250 ML IV SCH ×3 (01:01→15:00)
[2017-02-25] MEDS: VANCOMYCIN 1GM/250ML D5W 250 ML IV SCH ×4 (01:30→22:05)
[2017-02-25] MEDS: PROPOFOL 100 ML IV SCH ×5 (02:00→22:20)
[2017-02-25] MEDS: MIDAZOLAM DRIP 100 mg/100mL NS 100 ML IV SCH ×2 (02:03→12:52)
[2017-02-25] MEDS: fentaNYL Drip 2500mCg/250mlNS 250 ML IV SCH (02:19)
[2017-02-25] MEDS: ALBUTEROL SULF 2.5 MG/0.5ML(0.5%) NEB SOLN NEB PRN ×3 (02:34→22:25)
[2017-02-25] MEDS: IPRATROPIUM BROM 0.5 MG/2.5ML INH SOL NEB SCH ×6 (02:34→22:25)
[2017-02-25 04:35] LABS: Basophils # (auto) 0 uL; Eosinophils # (auto) 0 uL; Hematocrit 35.8 % (36.0-46.0); Hemoglobin 11.6 g/dL (12.2-16.2); Lymphocytes # (auto) 0.5 uL; Lymphocytes % (auto) 7.3 % (10.0-50.0); Mean Corpuscular Hemoglobin 27.3 pg (28.0-32.0); Mean Corpuscular Hgb Conc. 32.2 g/dL (32.0-36.0); Mean Corpuscular Volume 84.7 fL (80.0-100.0); Mean Platelet Volume 8.7 fL (7.4-10.4); Monocytes # (auto) 0.2 uL; Monocytes % (auto) 2.7 % (0.0-12.0); Neutrophils # (auto) 5.6 uL; Platelet Count (auto) 425 10^3/uL (140-450); Red Cell Distribution Width 14.7 % (11.6-16.0); White Blood Cell 6.2 10^3/uL (4.4-10.8)
[2017-02-25 05:01] LABS: Albumin 1.5 g/dL (3.4-5.0); BUN/Creatinine Ratio 10.7; Calcium 8.1 mg/dL (8.5-10.1); Phosphorus 2.8 mg/dL (2.5-4.90); Potassium 4.5 mmol/L (3.5-5.1); Total Protein 6.2 g/dL (6.4-8.2)
[2017-02-25] MEDS: BUMETANIDE (0.25MG/ML) 4 ML VIAL IV SCH ×2 (06:30→18:00)
[2017-02-25] MEDS: ACETYLCYSTEINE 20%(200MG/ML) SOL 4ML NEB SCH ×3 (06:49→22:25)
[2017-02-25] MEDS: PANTOPRAZOLE SODIUM 40 MG/10 ML VIAL IV SCH (09:29)
[2017-02-25] MEDS: LACTULOSE 20Gm/30ML SOLN PO SCH ×2 (09:29→22:05)
[2017-02-25] MEDS: ENOXAPARIN SOD 40 MG/0.4 ML SYRINGE SC SCH (09:29)
[2017-02-25] MEDS: PRO-STAT 64 30ML GT SCH ×2 (09:29→22:06)
[2017-02-25] MEDS ORDERED: TPN PER PHARMACY IV NR ×10 (20:00)
[2017-02-26] VITALS (99 sets, daily range): BP systolic 89–144; BP diastolic 39–105
[2017-02-26] MEDS: PHENYLEPHRINE INJ 20 MG in SODIUM CHL 0.9% 250 ML IV SCH ×3 (02:01→18:41)
[2017-02-26] MEDS: ALBUTEROL SULF 2.5 MG/0.5ML(0.5%) NEB SOLN NEB PRN (02:05)
[2017-02-26] MEDS: IPRATROPIUM BROM 0.5 MG/2.5ML INH SOL NEB SCH ×6 (02:05→22:23)
[2017-02-26] MEDS: PROPOFOL 100 ML IV SCH ×4 (02:10→21:45)
[2017-02-26] MEDS: ACCU-CHEK COMFORT CURVE STRIP VI SCH ×6 (04:30→23:52)
[2017-02-26] MEDS: InsuLIN REG 1unit/0.01ml Soln (100units/ml) SC SCH ×6 (04:49→23:56)
[2017-02-26 04:53] LABS: Basophils # (auto) 0 uL; Basophils % (auto) 0.2 % (0.0-2.0); Eosinophils # (auto) 0.1 uL; Eosinophils % (auto) 0.9 % (0.0-7.0); Hematocrit 33.9 % (36.0-46.0); Hemoglobin 10.8 g/dL (12.2-16.2); Lymphocytes # (auto) 1.1 uL; Lymphocytes % (auto) 19.1 % (10.0-50.0); Mean Corpuscular Hgb Conc. 31.9 g/dL (32.0-36.0); Mean Corpuscular Volume 84.5 fL (80.0-100.0); Mean Platelet Volume 8.9 fL (7.4-10.4); Monocytes # (auto) 0.3 uL; Monocytes % (auto) 6.1 % (0.0-12.0); Neutrophils # (auto) 4.1 uL; Neutrophils % (auto) 73.7 % (37.0-80.0); Platelet Count (auto) 452 10^3/uL (140-450); Red Cell Distribution Width 14.5 % (11.6-16.0); White Blood Cell 5.6 10^3/uL (4.4-10.8)
[2017-02-26 05:17] LABS: Albumin 1.5 g/dL (3.4-5.0); BUN/Creatinine Ratio 10.8; Potassium 4.1 mmol/L (3.5-5.1)
[2017-02-26 05:20] LABS: Bilirubin, Total 0.5 mg/dL (0.2-1.0)
[2017-02-26 05:42] LABS: Phosphorus 2.3 mg/dL (2.5-4.90)
[2017-02-26] MEDS: BUMETANIDE (0.25MG/ML) 4 ML VIAL IV SCH ×2 (05:44→18:50)
[2017-02-26] MEDS: PIPERACILLIN-TAZO 4.5GM 100 ML IV SCH ×2 (05:44→12:48)
[2017-02-26] MEDS: ACETYLCYSTEINE 20%(200MG/ML) SOL 4ML NEB SCH ×3 (06:00→22:23)
[2017-02-26] MEDS: fentaNYL Drip 2500mCg/250mlNS 250 ML IV SCH ×2 (08:54→23:52)
[2017-02-26] MEDS: SOD CHL 0.9%/ KCL 40MEQ 1,000 ML IV SCH (08:55)
[2017-02-26] MEDS ORDERED: SODIUM PHOSP 20MEQ(15MMOL) IN NS 100 ML IV ONE (10:00)
[2017-02-26] MEDS: PRO-STAT 64 30ML GT SCH ×2 (10:00→21:53)
[2017-02-26] MEDS ORDERED: TPN PER PHARMACY 0 ML IV SCH (10:00)
[2017-02-26] MEDS: ENOXAPARIN SOD 40 MG/0.4 ML SYRINGE SC SCH (10:04)
[2017-02-26] MEDS: VANCOMYCIN 1GM/250ML D5W 250 ML IV SCH (10:04)
[2017-02-26] MEDS: PANTOPRAZOLE SODIUM 40 MG/10 ML VIAL IV SCH (10:04)
[2017-02-26] MEDS: LACTULOSE 20Gm/30ML SOLN PO SCH ×2 (10:04→21:45)
[2017-02-26] MEDS ORDERED: PROPOFOL 100 ML IV ONE ×2 (13:25→17:57)
[2017-02-26] MEDS: ACETAMINOPHEN 650 MG RECT SUPP PR PRN (14:54)
[2017-02-26] MEDS ORDERED: TPN PER PHARMACY IV NR ×9 (20:00)
[2017-02-27] VITALS (79 sets, daily range): BP systolic 109–156; BP diastolic 42–87
[2017-02-27] MEDS: IPRATROPIUM BROM 0.5 MG/2.5ML INH SOL NEB SCH ×6 (02:24→22:28)
[2017-02-27] MEDS: PROPOFOL 100 ML IV SCH ×2 (02:29→06:16)
[2017-02-27] MEDS: PHENYLEPHRINE INJ 20 MG in SODIUM CHL 0.9% 250 ML IV SCH ×2 (03:01→11:21)
[2017-02-27] MEDS: ACCU-CHEK COMFORT CURVE STRIP VI SCH ×6 (04:20→23:57)
[2017-02-27] MEDS: InsuLIN REG 1unit/0.01ml Soln (100units/ml) SC SCH ×5 (04:22→20:34)
[2017-02-27 04:55] LABS: Albumin 1.6 g/dL (3.4-5.0); BUN/Creatinine Ratio 14.7; Bilirubin, Total 0.6 mg/dL (0.2-1.0); Calcium 8.3 mg/dL (8.5-10.1); Magnesium 2.1 mg/dL (1.6-2.6); Phosphorus 2.6 mg/dL (2.5-4.90); Potassium 4.1 mmol/L (3.5-5.1); Total Protein 6.3 g/dL (6.4-8.2)
[2017-02-27] MEDS: BUMETANIDE (0.25MG/ML) 4 ML VIAL IV SCH ×2 (06:17→17:29)
[2017-02-27] MEDS: ACETYLCYSTEINE 20%(200MG/ML) SOL 4ML NEB SCH ×3 (06:19→22:28)
[2017-02-27] MEDS: ALBUTEROL SULF 2.5 MG/0.5ML(0.5%) NEB SOLN NEB PRN ×3 (06:19→14:15)
[2017-02-27] MEDS: LACTULOSE 20Gm/30ML SOLN PO SCH ×2 (09:17→22:00)
[2017-02-27] MEDS: PRO-STAT 64 30ML GT SCH ×2 (09:18→22:00)
[2017-02-27] MEDS: ENOXAPARIN SOD 40 MG/0.4 ML SYRINGE SC SCH (09:30)
[2017-02-27] MEDS: PANTOPRAZOLE SODIUM 40 MG/10 ML VIAL IV SCH (09:31)
[2017-02-27] MEDS ORDERED: LORazepam 2MG/ML-1ML VIAL ONE (10:52)
[2017-02-27] MEDS ORDERED: LORazepam 2MG/ML-1ML VIAL IV PRN (11:00)
[2017-02-27] MEDS: MIDAZOLAM DRIP 100 mg/100mL NS 100 ML IV SCH (12:08)
[2017-02-27] MEDS ORDERED: MICAFUNGIN SODIUM 100 MG in SODIUM CHL 0.9% 100 ML IV ONE (13:30)
[2017-02-27] MEDS: ACETAMINOPHEN 650 MG RECT SUPP PR PRN (14:49)
[2017-02-27] MEDS: LORazepam 2MG/ML-1ML VIAL IV PRN ×2 (16:04→21:35)
[2017-02-27] MEDS: fentaNYL Drip 2500mCg/250mlNS 250 ML IV SCH (19:04)
[2017-02-27] MEDS ORDERED: TPN PER PHARMACY IV NR ×8 (20:00)
[2017-02-27] MEDS: QUEtiapine FUMARATE 100 MG TAB PO SCH ×2 (21:40→22:07)
[2017-02-27] MEDS ORDERED: FUROSEMIDE 40 MG/4 ML VIAL ONE (22:14)
[2017-02-27] MEDS ORDERED: FUROSEMIDE 40 MG/4 ML VIAL IV ONE (22:15)
[2017-02-27] MEDS: MORPHINE SULF INJ 2 MG/ML SYRINGE 1ML IV PRN (23:05)
[2017-02-27] MEDS ORDERED: methylPREDNISolone SOD SUCC 125 MG/2 ML VL ONE (23:39)
[2017-02-27] MEDS ORDERED: methylPREDNISolone SOD SUCC 125 MG/2 ML VL IV ONE (23:45)
[2017-02-27] MEDS ORDERED: LORazepam 2MG/ML-1ML VIAL IV ONE (23:45)
[2017-02-28] VITALS (31 sets, daily range): BP systolic 96–142; BP diastolic 38–81
[2017-02-28] MEDS ORDERED: HALOPERIDOL LACTATE 5 MG/ML INJ VIAL ONE (01:02)
[2017-02-28] MEDS ORDERED: HALOPERIDOL LACTATE 5 MG/ML INJ VIAL IM ONE (01:15)
[2017-02-28] MEDS: IPRATROPIUM BROM 0.5 MG/2.5ML INH SOL NEB SCH ×6 (02:15→22:22)
[2017-02-28] MEDS: MORPHINE SULF INJ 2 MG/ML SYRINGE 1ML IV PRN ×2 (03:28→22:05)
[2017-02-28] MEDS: ALBUTEROL SULF 2.5 MG/0.5ML(0.5%) NEB SOLN NEB PRN ×4 (03:37→19:34)
[2017-02-28] MEDS: ACCU-CHEK COMFORT CURVE STRIP VI SCH ×5 (04:13→19:41)
[2017-02-28] MEDS: InsuLIN REG 1unit/0.01ml Soln (100units/ml) SC SCH ×6 (04:14→19:40)
[2017-02-28 05:31] LABS: Potassium 3.9 mmol/L (3.5-5.1)
[2017-02-28 05:36] LABS: Albumin 2.1 g/dL (3.4-5.0); BUN/Creatinine Ratio 19.4; Calcium 8.6 mg/dL (8.5-10.1); Magnesium 2.1 mg/dL (1.6-2.6)
[2017-02-28 05:38] LABS: Bilirubin, Total 0.7 mg/dL (0.2-1.0)
[2017-02-28] MEDS: BUMETANIDE (0.25MG/ML) 4 ML VIAL IV SCH ×2 (05:50→17:51)
[2017-02-28] MEDS: LORazepam 2MG/ML-1ML VIAL IV PRN ×3 (05:50→21:02)
[2017-02-28 05:52] LABS: Phosphorus 3.7 mg/dL (2.5-4.90)
[2017-02-28] MEDS: ACETYLCYSTEINE 20%(200MG/ML) SOL 4ML NEB SCH ×3 (06:18→19:34)
[2017-02-28] MEDS: PRO-STAT 64 30ML GT SCH ×2 (09:40→21:51)
[2017-02-28] MEDS: PANTOPRAZOLE SODIUM 40 MG/10 ML VIAL IV SCH (10:00)
[2017-02-28] MEDS: ENOXAPARIN SOD 40 MG/0.4 ML SYRINGE SC SCH (10:00)
[2017-02-28] MEDS: MICAFUNGIN SODIUM 100 MG in SODIUM CHL 0.9% 100 ML IV SCH (10:00)
[2017-02-28] MEDS: LACTULOSE 20Gm/30ML SOLN PO SCH (10:00)
[2017-02-28] MEDS: MIDAZOLAM DRIP 100 mg/100mL NS 100 ML IV SCH (11:54)
[2017-02-28] MEDS ORDERED: NICOTINE 14 MG/24HR TOPICAL PATCH TD ONE (13:45)
[2017-02-28] MEDS: NYSTATIN (MOUTH-THROAT) 500,000 UNITS/5 ML SUSP MT SCH ×2 (16:05→22:04)
[2017-02-28] MEDS: fentaNYL Drip 2500mCg/250mlNS 250 ML IV SCH (17:51)
[2017-02-28] MEDS: PROPOFOL 100 ML IV SCH (17:52)
[2017-02-28 19:25] LABS: Prothrombin Time 10.8 sec (9.37-12.3)
[2017-02-28] MEDS ORDERED: LIDOCAINE 1% HCL (LOCAL ANESTH.) INJ 20ML MDV ID ONE (20:30)
[2017-02-28] MEDS: TPN PER PHARMACY IV NR ×9 (21:01)
[2017-02-28] MEDS: SODIUM CHLOR 0.9% PF (SALINE LOCK) 10ML VIAL IV SCH (22:00)
[2017-02-28] MEDS: QUEtiapine FUMARATE 100 MG TAB PO SCH (22:04)
[2017-03-01] VITALS (8 sets, daily range): BP systolic 98–155; BP diastolic 58–83
[2017-03-01] MEDS: InsuLIN REG 1unit/0.01ml Soln (100units/ml) SC SCH ×6 (00:22→21:19)
[2017-03-01] MEDS: IPRATROPIUM BROM 0.5 MG/2.5ML INH SOL NEB SCH ×6 (02:14→22:11)
[2017-03-01 04:09] LABS: Albumin 2.1 g/dL (3.4-5.0); BUN/Creatinine Ratio 25.3; Calcium 8.4 mg/dL (8.5-10.1); Magnesium 2.2 mg/dL (1.6-2.6); Potassium 3.5 mmol/L (3.5-5.1)
[2017-03-01 04:12] LABS: Bilirubin, Total 0.6 mg/dL (0.2-1.0)
[2017-03-01 04:20] LABS: Phosphorus 2.5 mg/dL (2.5-4.90)
[2017-03-01] MEDS: LACTULOSE 20Gm/30ML SOLN PO SCH ×3 (04:45→21:53)
[2017-03-01] MEDS: ACCU-CHEK COMFORT CURVE STRIP VI SCH ×5 (04:45→21:18)
[2017-03-01] MEDS: BUMETANIDE (0.25MG/ML) 4 ML VIAL IV SCH ×2 (05:44→17:49)
[2017-03-01] MEDS: NYSTATIN (MOUTH-THROAT) 500,000 UNITS/5 ML SUSP MT SCH ×4 (05:44→21:53)
[2017-03-01] MEDS: ACETYLCYSTEINE 20%(200MG/ML) SOL 4ML NEB SCH ×3 (06:35→22:11)
[2017-03-01] MEDS: MICAFUNGIN SODIUM 100 MG in SODIUM CHL 0.9% 100 ML IV SCH ×2 (10:00→11:46)
[2017-03-01] MEDS: PRO-STAT 64 30ML GT SCH ×2 (10:00→22:13)
[2017-03-01] MEDS ORDERED: POTASSIUM PHOSP 22MEQ(15MMOLE) in NS 100 ML IV ONE (10:00)
[2017-03-01] MEDS: ENOXAPARIN SOD 40 MG/0.4 ML SYRINGE SC SCH (10:37)
[2017-03-01] MEDS: PANTOPRAZOLE SODIUM 40 MG/10 ML VIAL IV SCH (10:37)
[2017-03-01] MEDS: NICOTINE 14 MG/24HR TOPICAL PATCH TD SCH (10:37)
[2017-03-01] MEDS: SODIUM CHLOR 0.9% PF (SALINE LOCK) 10ML VIAL IV SCH ×2 (10:37→22:13)
[2017-03-01] MEDS: ALBUTEROL SULF 2.5 MG/0.5ML(0.5%) NEB SOLN NEB PRN ×3 (15:06→22:11)
[2017-03-01] MEDS: TPN PER PHARMACY IV NR ×9 (19:56)
[2017-03-01] MEDS ORDERED: TPN PER PHARMACY IV NR ×9 (20:00)
[2017-03-01] MEDS: INSULIN DETEMIR(LEVEMIR) 1unit/0.01ml Soln (100units/ml) SC SCH (21:52)
[2017-03-01] MEDS: QUEtiapine FUMARATE 100 MG TAB PO SCH (21:53)
[2017-03-01] MEDS: LORazepam 2MG/ML-1ML VIAL IV PRN (23:31)
[2017-03-02] VITALS (7 sets, daily range): BP systolic 100–156; BP diastolic 38–83
[2017-03-02] MEDS: IPRATROPIUM BROM 0.5 MG/2.5ML INH SOL NEB SCH ×6 (02:48→22:12)
[2017-03-02] MEDS: ALBUTEROL SULF 2.5 MG/0.5ML(0.5%) NEB SOLN NEB PRN ×2 (02:48→22:12)
[2017-03-02] MEDS: ACCU-CHEK COMFORT CURVE STRIP VI SCH ×6 (04:28→20:01)
[2017-03-02] MEDS: InsuLIN REG 1unit/0.01ml Soln (100units/ml) SC SCH ×6 (04:29→20:14)
[2017-03-02] MEDS: BUMETANIDE (0.25MG/ML) 4 ML VIAL IV SCH ×2 (05:17→18:07)
[2017-03-02] MEDS: NYSTATIN (MOUTH-THROAT) 500,000 UNITS/5 ML SUSP MT SCH ×4 (05:18→21:06)
[2017-03-02] MEDS: ACETYLCYSTEINE 20%(200MG/ML) SOL 4ML NEB SCH ×3 (06:09→22:12)
[2017-03-02 07:26] LABS: Albumin 2.4 g/dL (3.4-5.0); Bilirubin, Total 0.7 mg/dL (0.2-1.0); Calcium 9.3 mg/dL (8.5-10.1); Magnesium 2.5 mg/dL (1.6-2.6); Phosphorus 2.5 mg/dL (2.5-4.90); Total Protein 8.1 g/dL (6.4-8.2)
[2017-03-02] MEDS: PANTOPRAZOLE SODIUM 40 MG/10 ML VIAL IV SCH (10:11)
[2017-03-02] MEDS: MICAFUNGIN SODIUM 100 MG in SODIUM CHL 0.9% 100 ML IV SCH (10:11)
[2017-03-02] MEDS: LACTULOSE 20Gm/30ML SOLN PO SCH ×2 (10:12→21:06)
[2017-03-02] MEDS: ENOXAPARIN SOD 40 MG/0.4 ML SYRINGE SC SCH (10:12)
[2017-03-02] MEDS: SODIUM CHLOR 0.9% PF (SALINE LOCK) 10ML VIAL IV SCH ×2 (10:12→21:05)
[2017-03-02] MEDS: NICOTINE 14 MG/24HR TOPICAL PATCH TD SCH (10:24)
[2017-03-02] MEDS: PRO-STAT 64 30ML GT SCH ×2 (10:30→21:05)
[2017-03-02] MEDS: QUEtiapine FUMARATE 25 MG TAB PO SCH ×2 (10:30→21:06)
[2017-03-02] MEDS: ACETAMINOPHEN 325 MG TAB PO PRN (14:57)
[2017-03-02] MEDS ORDERED: TPN PER PHARMACY IV NR ×10 (20:00)
[2017-03-02] MEDS: LORazepam 2MG/ML-1ML VIAL IV PRN ×2 (20:01→23:59)
[2017-03-02] MEDS: INSULIN DETEMIR(LEVEMIR) 1unit/0.01ml Soln (100units/ml) SC SCH (21:54)
[2017-03-03] MEDS: IPRATROPIUM BROM 0.5 MG/2.5ML INH SOL NEB SCH ×5 (02:11→22:00)
[2017-03-03] MEDS: InsuLIN REG 1unit/0.01ml Soln (100units/ml) SC SCH ×6 (03:50→20:00)
[2017-03-03] MEDS: ACCU-CHEK COMFORT CURVE STRIP VI SCH ×6 (03:50→20:17)
[2017-03-03 05:32] VITALS: BP 145/76
[2017-03-03] MEDS: BUMETANIDE (0.25MG/ML) 4 ML VIAL IV SCH ×2 (05:37→17:24)
[2017-03-03] MEDS: NYSTATIN (MOUTH-THROAT) 500,000 UNITS/5 ML SUSP MT SCH ×4 (05:37→22:21)
[2017-03-03] MEDS: ACETYLCYSTEINE 20%(200MG/ML) SOL 4ML NEB SCH ×2 (06:23→18:46)
[2017-03-03 06:34] LABS: Albumin 2.4 g/dL (3.4-5.0); BUN/Creatinine Ratio 31.9; Bilirubin, Total 0.8 mg/dL (0.2-1.0); Calcium 9.3 mg/dL (8.5-10.1); Magnesium 2.4 mg/dL (1.6-2.6); Phosphorus 3.1 mg/dL (2.5-4.90); Potassium 4.4 mmol/L (3.5-5.1); Total Protein 8.1 g/dL (6.4-8.2)
[2017-03-03 09:00] VITALS: BP 138/58
[2017-03-03] MEDS: PRO-STAT 64 30ML GT SCH ×2 (10:00→22:21)
[2017-03-03] MEDS: LACTULOSE 20Gm/30ML SOLN PO SCH ×2 (10:00→22:00)
[2017-03-03] MEDS: NICOTINE 14 MG/24HR TOPICAL PATCH TD SCH (10:00)
[2017-03-03] MEDS: MICAFUNGIN SODIUM 100 MG in SODIUM CHL 0.9% 100 ML IV SCH (10:00)
[2017-03-03] MEDS: PANTOPRAZOLE SODIUM 40 MG/10 ML VIAL IV SCH (10:06)
[2017-03-03] MEDS: QUEtiapine FUMARATE 25 MG TAB PO SCH ×2 (10:06→22:22)
[2017-03-03] MEDS: SODIUM CHLOR 0.9% PF (SALINE LOCK) 10ML VIAL IV SCH ×2 (10:06→22:21)
[2017-03-03 13:00] VITALS: BP 121/60
[2017-03-03] MEDS ORDERED: ONDANSETRON HCL 4 MG/2 ML VIAL IV PRN (15:15)
[2017-03-03 17:00] VITALS: BP 141/62
[2017-03-03] MEDS ORDERED: TPN PER PHARMACY IV NR ×10 (20:00)
[2017-03-03 22:00] VITALS: BP 131/57
[2017-03-03] MEDS: INSULIN DETEMIR(LEVEMIR) 1unit/0.01ml Soln (100units/ml) SC SCH (22:00)
[2017-03-04] MEDS: ACCU-CHEK COMFORT CURVE STRIP VI SCH ×6 (00:18→19:54)
[2017-03-04] MEDS: InsuLIN REG 1unit/0.01ml Soln (100units/ml) SC SCH ×6 (00:22→19:54)
[2017-03-04] MEDS: IPRATROPIUM BROM 0.5 MG/2.5ML INH SOL NEB SCH ×6 (02:31→22:42)
[2017-03-04 05:00] VITALS: BP 127/68
[2017-03-04] MEDS: NYSTATIN (MOUTH-THROAT) 500,000 UNITS/5 ML SUSP MT SCH ×4 (06:09→22:26)
[2017-03-04] MEDS: BUMETANIDE (0.25MG/ML) 4 ML VIAL IV SCH ×2 (06:10→18:00)
[2017-03-04 07:02] LABS: Basophils # (auto) 0 uL; Basophils % (auto) 0.3 % (0.0-2.0); Eosinophils # (auto) 0.1 uL; Eosinophils % (auto) 1.1 % (0.0-7.0); Hemoglobin 12.6 g/dL (12.2-16.2); Lymphocytes # (auto) 2.5 uL; Mean Corpuscular Hgb Conc. 31.5 g/dL (32.0-36.0); Mean Corpuscular Volume 85.6 fL (80.0-100.0); Mean Platelet Volume 8.4 fL (7.4-10.4); Monocytes # (auto) 1.1 uL; Monocytes % (auto) 9.1 % (0.0-12.0); Neutrophils # (auto) 8.8 uL; Neutrophils % (auto) 69.5 % (37.0-80.0); Platelet Count (auto) 354 10^3/uL (140-450); White Blood Cell 12.7 10^3/uL (4.4-10.8)
[2017-03-04] MEDS: ALBUTEROL SULF 2.5 MG/0.5ML(0.5%) NEB SOLN NEB PRN ×5 (07:31→22:42)
[2017-03-04] MEDS: ACETYLCYSTEINE 20%(200MG/ML) SOL 4ML NEB SCH ×3 (07:31→22:42)
[2017-03-04 07:32] LABS: Albumin 2.4 g/dL (3.4-5.0); BUN/Creatinine Ratio 33.8; Bilirubin, Total 0.9 mg/dL (0.2-1.0); Calcium 8.9 mg/dL (8.5-10.1); Magnesium 2.4 mg/dL (1.6-2.6); Phosphorus 3.4 mg/dL (2.5-4.90); Potassium 4.3 mmol/L (3.5-5.1); Total Protein 7.9 g/dL (6.4-8.2)
[2017-03-04 07:33] LABS: Bilirubin, Direct 0.6 mg/dL (0-0.2)
[2017-03-04 09:00] VITALS: BP 121/91
[2017-03-04] MEDS: LACTULOSE 20Gm/30ML SOLN PO SCH ×2 (10:14→22:00)
[2017-03-04] MEDS: LORazepam 2MG/ML-1ML VIAL IV PRN (10:14)
[2017-03-04] MEDS: QUEtiapine FUMARATE 25 MG TAB PO SCH ×2 (10:15→22:26)
[2017-03-04] MEDS: PRO-STAT 64 30ML GT SCH ×2 (10:15→22:00)
[2017-03-04] MEDS: PANTOPRAZOLE SODIUM 40 MG/10 ML VIAL IV SCH (10:15)
[2017-03-04] MEDS: NICOTINE 14 MG/24HR TOPICAL PATCH TD SCH (10:15)
[2017-03-04] MEDS: SODIUM CHLOR 0.9% PF (SALINE LOCK) 10ML VIAL IV SCH ×2 (10:16→22:26)
[2017-03-04] MEDS: MICAFUNGIN SODIUM 100 MG in SODIUM CHL 0.9% 100 ML IV SCH (10:22)
[2017-03-04 13:51] VITALS: BP 126/67
[2017-03-04 17:12] VITALS: BP 106/73
[2017-03-04] MEDS ORDERED: TPN PER PHARMACY IV NR ×10 (20:00)
[2017-03-04 22:00] VITALS: BP 103/74
[2017-03-05] MEDS: ACCU-CHEK COMFORT CURVE STRIP VI SCH ×6 (01:06→20:00)
[2017-03-05] MEDS: InsuLIN REG 1unit/0.01ml Soln (100units/ml) SC SCH ×6 (01:07→20:00)
[2017-03-05 01:24] VITALS: BP 127/67
[2017-03-05] MEDS: INSULIN DETEMIR(LEVEMIR) 1unit/0.01ml Soln (100units/ml) SC SCH ×2 (01:25→22:59)
[2017-03-05] MEDS: LORazepam 2MG/ML-1ML VIAL IV PRN ×4 (01:46→22:48)
[2017-03-05] MEDS: ALBUTEROL SULF 2.5 MG/0.5ML(0.5%) NEB SOLN NEB PRN ×3 (02:11→14:35)
[2017-03-05] MEDS: IPRATROPIUM BROM 0.5 MG/2.5ML INH SOL NEB SCH ×6 (02:11→22:00)
[2017-03-05 05:35] VITALS: BP 97/53
[2017-03-05] MEDS: NYSTATIN (MOUTH-THROAT) 500,000 UNITS/5 ML SUSP MT SCH ×2 (06:00→13:49)
[2017-03-05] MEDS: BUMETANIDE (0.25MG/ML) 4 ML VIAL IV SCH ×2 (06:00→06:44)
[2017-03-05] MEDS: ACETYLCYSTEINE 20%(200MG/ML) SOL 4ML NEB SCH ×3 (06:47→22:00)
[2017-03-05 09:00] LABS: Albumin 2.8 g/dL (3.4-5.0); BUN/Creatinine Ratio 28.1; Calcium 9.2 mg/dL (8.5-10.1); Phosphorus 3.1 mg/dL (2.5-4.90); Potassium 3.7 mmol/L (3.5-5.1); Total Protein 8.6 g/dL (6.4-8.2)
[2017-03-05 09:05] LABS: Albumin 2.8 g/dL (3.4-5.0); Bilirubin, Direct 0.7 mg/dL (0-0.2); Total Protein 8.6 g/dL (6.4-8.2)
[2017-03-05] MEDS: LACTULOSE 20Gm/30ML SOLN PO SCH ×3 (10:00→22:48)
[2017-03-05] MEDS: QUEtiapine FUMARATE 25 MG TAB PO SCH (10:05)
[2017-03-05] MEDS: PANTOPRAZOLE SODIUM 40 MG/10 ML VIAL IV SCH (10:05)
[2017-03-05] MEDS: NICOTINE 14 MG/24HR TOPICAL PATCH TD SCH (10:05)
[2017-03-05] MEDS: PRO-STAT 64 30ML GT SCH ×2 (10:06→22:50)
[2017-03-05] MEDS: MICAFUNGIN SODIUM 100 MG in SODIUM CHL 0.9% 100 ML IV SCH (10:06)
[2017-03-05] MEDS: SODIUM CHLOR 0.9% PF (SALINE LOCK) 10ML VIAL IV SCH ×2 (10:06→22:48)
[2017-03-05 10:39] VITALS: BP 100/70
[2017-03-05 14:27] VITALS: BP 106/69
[2017-03-05 17:45] VITALS: BP 110/66
[2017-03-05] MEDS: BUMETANIDE 1 MG TAB PO SCH (17:55)
[2017-03-05] MEDS ORDERED: SODIUM CHLORIDE IV NR ×22 (20:00)
[2017-03-05] MEDS ORDERED: TPN PER PHARMACY IV NR ×11 (20:00)
[2017-03-05] MEDS ORDERED: FAT EMULSION IV NR ×22 (20:00)
[2017-03-05] MEDS ORDERED: SODIUM PHOSPHATES IV NR ×22 (20:00)
[2017-03-05] MEDS ORDERED: [UNRECOGNIZED DRUG - OTHER] IV NR ×22 (20:00)
[2017-03-05] MEDS ORDERED: QUEtiapine FUMARATE 100 MG TAB PO SCH (22:00)
[2017-03-05] MEDS: ACETAMINOPHEN 325 MG TAB PO PRN (22:48)
[2017-03-06] MEDS: InsuLIN REG 1unit/0.01ml Soln (100units/ml) SC SCH ×6 (00:47→21:06)
[2017-03-06] MEDS: IPRATROPIUM BROM 0.5 MG/2.5ML INH SOL NEB SCH ×6 (02:00→22:39)
[2017-03-06] MEDS: ACCU-CHEK COMFORT CURVE STRIP VI SCH ×6 (03:57→20:00)
[2017-03-06] MEDS: BUMETANIDE 1 MG TAB PO SCH ×2 (05:36→17:11)
[2017-03-06] MEDS: QUEtiapine FUMARATE 25 MG TAB PO SCH (05:42)
[2017-03-06] MEDS: ACETYLCYSTEINE 20%(200MG/ML) SOL 4ML NEB SCH ×3 (06:00→22:39)
[2017-03-06] MEDS: LORazepam 2MG/ML-1ML VIAL IV PRN ×4 (06:01→20:49)
[2017-03-06] MEDS ORDERED: QUEtiapine FUMARATE 25 MG TAB PO SCH (07:00)
[2017-03-06 07:19] LABS: Albumin 2.6 g/dL (3.4-5.0); BUN/Creatinine Ratio 23.2; Bilirubin, Total 1.1 mg/dL (0.2-1.0); Calcium 9.1 mg/dL (8.5-10.1); Magnesium 2.1 mg/dL (1.6-2.6); Potassium 3.7 mmol/L (3.5-5.1); Total Protein 7.9 g/dL (6.4-8.2)
[2017-03-06 09:13] VITALS: BP 128/58
[2017-03-06] MEDS: NICOTINE 14 MG/24HR TOPICAL PATCH TD SCH (10:00)
[2017-03-06] MEDS: LACTULOSE 20Gm/30ML SOLN PO SCH ×2 (10:00→21:00)
[2017-03-06] MEDS: PANTOPRAZOLE SODIUM 40 MG/10 ML VIAL IV SCH (10:31)
[2017-03-06] MEDS: SODIUM CHLOR 0.9% PF (SALINE LOCK) 10ML VIAL IV SCH ×2 (10:31→20:50)
[2017-03-06] MEDS: PRO-STAT 64 30ML GT SCH ×2 (10:31→20:50)
[2017-03-06] MEDS: QUEtiapine FUMARATE 100 MG TAB PO SCH ×2 (10:32→20:50)
[2017-03-06 12:46] VITALS: BP 103/79
[2017-03-06 16:58] VITALS: BP 113/80
[2017-03-06] MEDS: ACETAMINOPHEN 325 MG TAB PO PRN (20:49)
[2017-03-06] MEDS: INSULIN DETEMIR(LEVEMIR) 1unit/0.01ml Soln (100units/ml) SC SCH (21:07)
[2017-03-07] MEDS: InsuLIN REG 1unit/0.01ml Soln (100units/ml) SC SCH ×5 (01:02→16:00)
[2017-03-07] MEDS: IPRATROPIUM BROM 0.5 MG/2.5ML INH SOL NEB SCH ×4 (02:00→14:00)
[2017-03-07] MEDS: ACCU-CHEK COMFORT CURVE STRIP VI SCH ×5 (04:00→16:00)
[2017-03-07 05:00] VITALS: BP 104/56
[2017-03-07] MEDS: BUMETANIDE 1 MG TAB PO SCH (05:19)
[2017-03-07] MEDS: ACETYLCYSTEINE 20%(200MG/ML) SOL 4ML NEB SCH ×2 (05:50→14:00)
[2017-03-07] MEDS: NICOTINE 14 MG/24HR TOPICAL PATCH TD SCH (10:00)
[2017-03-07] MEDS: LACTULOSE 20Gm/30ML SOLN PO SCH (10:00)
[2017-03-07] MEDS: PRO-STAT 64 30ML GT SCH (10:33)
[2017-03-07] MEDS: PANTOPRAZOLE SODIUM 40 MG/10 ML VIAL IV SCH (10:33)
[2017-03-07] MEDS: SODIUM CHLOR 0.9% PF (SALINE LOCK) 10ML VIAL IV SCH (10:33)
[2017-03-07] MEDS: QUEtiapine FUMARATE 100 MG TAB PO SCH (10:33)
[2017-03-07] MEDS: ALBUTEROL SULF 2.5 MG/0.5ML(0.5%) NEB SOLN NEB PRN (10:50)
[2017-03-07] MEDS ORDERED: Boost Glucose Control 8 Ounces PO SCH (18:00)
== END 2017-03-07 16:10 | DRG 812 ==
LOC: EDSEX 14:58 → EDBD 14:58 → ER 15:12 → OBSVTOIN 15:27 → OVERFLOW 15:27 → ICU WEST 23:38 → TELE-WESTW 03-01 04:51 → WEST WING 03-06 23:15
PROVIDERS: ADMIT Family Medicine; ATTEND Internal Medicine Pulmonary Disease
PROC: 5A1955Z Respiratory Ventilation, Greater than 96 Consecutive Hours (ICD-10-PCS; principal; 2017-02-15)
PROC: 0BH17EZ Insertion of Endotracheal Airway into Trachea, Via Natural or Artificial Opening (ICD-10-PCS; 2017-02-15)
PROC: 02HV33Z Insertion of Infusion Device into Superior Vena Cava, Percutaneous Approach (ICD-10-PCS; 2017-02-23)
PROC: 5A09457 Assistance with Respiratory Ventilation, 24-96 Consecutive Hours, Continuous Positive Airway Pressure (ICD-10-PCS; 2017-02-27)
DX: T43.592A Poisoning by other antipsychotics and neuroleptics, intentional self-harm, initial encounter (principal); N17.0 Acute kidney failure with tubular necrosis; J96.01 Acute respiratory failure with hypoxia; G92 Toxic encephalopathy; J69.0 Pneumonitis due to inhalation of food and vomit; A41.9 Sepsis, unspecified organism; E43 Unspecified severe protein-calorie malnutrition; G93.1 Anoxic brain damage, not elsewhere classified; E13.10 Other specified diabetes mellitus with ketoacidosis without coma; I47.2 Ventricular tachycardia; E87.0 Hyperosmolality and hypernatremia; E87.3 Alkalosis; B49 Unspecified mycosis; N18.6 End stage renal disease; I12.0 Hypertensive chronic kidney disease with stage 5 chronic kidney disease or end stage renal disease; F20.9 Schizophrenia, unspecified; F17.200 Nicotine dependence, unspecified, uncomplicated; E87.1 Hypo-osmolality and hyponatremia; E86.0 Dehydration; I95.9 Hypotension, unspecified; E87.6 Hypokalemia; K59.00 Constipation, unspecified; F31.4 Bipolar disorder, current episode depressed, severe, without psychotic features; E83.39 Other disorders of phosphorus metabolism; Y95 Nosocomial condition; Z98.51 Tubal ligation status; Z68.27 Body mass index [BMI] 27.0-27.9, adult; Y92.89 Other specified places as the place of occurrence of the external cause
CPT/HCPCS: 36415; 36569; 36600; 70450; 71010; 71020; 74020; 74022; 76775; 80048; 80053; 80076; 80202; 80320; 80329; 81001; 82010; 82040; 82533; 82570; 82805; 82962; 83036; 83735; 83880; 83930; 83935; 83970; 84100; 84132; 84156; 84300; 84439; 84443; 84478; 85007; 85025; 85027; 85610; 85730; 87040; 87070; 87077; 87081; 87086; 87186; 87205; 92610; 93005; 93306; 94002; 94003; 94640; 94660; 95819; 96361; 96365; 96367; 96375; 97001; 99291; C9113; G0378; G0434; J0330; J0696; J1815; J2001; J2248; J2405; J2543; J2704; J3010; J3480; J7060; J7131

== ENCOUNTER 2017-03-07 18:24 | Emergency (ER) | payer MEDICAID ==
[~2017-03-07] VITALS: Ht 165.1 cm; Wt 77.6 kg
[2017-03-07] MEDS ORDERED: DEXTROSE (50%) 50ML SYRG IV PRN (21:00)
[2017-03-07] MEDS ORDERED: QUEtiapine FUMARATE 25 MG TAB PO SCH (22:00)
[2017-03-08] VITALS: BP 110/65
[2017-03-08] MEDS ORDERED: LORazepam 0.5 MG TAB PO ONE
[2017-03-08] MEDS ORDERED: InsuLIN REG 1unit/0.01ml Soln (100units/ml) SC SCH
[2017-03-08] MEDS ORDERED: ACCU-CHEK COMFORT CURVE STRIP VI SCH
== END 2017-03-08 00:29 | disposition short-term general hospital (02) ==
LOC: ER 18:24
DX: F32.9 Major depressive disorder, single episode, unspecified (principal); F20.9 Schizophrenia, unspecified; T14.91 Suicide attempt; E11.22 Type 2 diabetes mellitus with diabetic chronic kidney disease; N18.6 End stage renal disease; I12.9 Hypertensive chronic kidney disease with stage 1 through stage 4 chronic kidney disease, or unspecified chronic kidney disease; Z98.51 Tubal ligation status; F12.10 Cannabis abuse, uncomplicated; F14.10 Cocaine abuse, uncomplicated
CPT/HCPCS: 82962

== ENCOUNTER 2017-03-24 14:59 | Emergency (ER) | payer MEDICAID ==
[~2017-03-24] VITALS: Ht 162.6 cm; Wt 86.6 kg
[2017-03-24 16:31] VITALS: BP 116/72
== END 2017-03-24 17:35 | disposition home or self-care (01) ==
LOC: ER 15:09
DX: F31.9 Bipolar disorder, unspecified (principal); Z76.0 Encounter for issue of repeat prescription; F12.10 Cannabis abuse, uncomplicated; F14.10 Cocaine abuse, uncomplicated; E11.22 Type 2 diabetes mellitus with diabetic chronic kidney disease; I12.0 Hypertensive chronic kidney disease with stage 5 chronic kidney disease or end stage renal disease; N18.6 End stage renal disease

== ENCOUNTER 2017-04-01 09:39 | Emergency (ER) | payer MEDICAID ==
[~2017-04-01] VITALS: Ht 160 cm; Wt 81.6 kg
[~2017-04-01 09:39] MED LIST changes: -METF-312 PO; +METF-370 PO
[2017-04-01 10:18] VITALS: BP 124/101
[2017-04-01 10:18] LABS: Basophils # (auto) 0 uL; Basophils % (auto) 0.5 % (0.0-2.0); Eosinophils # (auto) 0 uL; Hematocrit 36.5 % (36.0-46.0); Hemoglobin 11.9 g/dL (12.2-16.2); Lymphocytes # (auto) 1.3 uL; Lymphocytes % (auto) 32.6 % (10.0-50.0); Mean Corpuscular Hemoglobin 27.4 pg (28.0-32.0); Mean Corpuscular Hgb Conc. 32.6 g/dL (32.0-36.0); Mean Platelet Volume 8.8 fL (7.4-10.4); Monocytes # (auto) 0.4 uL; Monocytes % (auto) 9.5 % (0.0-12.0); Neutrophils # (auto) 2.3 uL; Neutrophils % (auto) 56.4 % (37.0-80.0); Platelet Count (auto) 216 10^3/uL (140-450); Red Cell Distribution Width 15.7 % (11.6-16.0); SUSPECT VIEW TRANSMISSION; White Blood Cell 4.1 10^3/uL (4.4-10.8)
[2017-04-01 10:30] LABS: Urine Bilirubin Negative (Negative); Urine Blood Negative /uL (Negative); Urine Color Yellow (Yellow); Urine Ketone Negative (Negative); Urine Mucus FEW (None Seen); Urine Nitrite Negative (Negative); Urine RBC 23 /hpf (0 - 4); Urine Squamous Epithelial Cell FEW /hpf (<5); Urine Urobilinogen Normal (Negative)
[2017-04-01 10:31] LABS: Urine Glucose 2+ mg/dL (Normal)
[2017-04-01 10:36] LABS: Albumin 2.6 g/dL (3.4-5.0); Anion Gap 12 (5-15); Aspartate Aminotransferase 32 U/L (15-37); BUN/Creatinine Ratio 3.6; Blood Urea Nitrogen 3 mg/dL (7-18); Carbon Dioxide 22 mmol/L (21-32); Chloride 110 mmol/L (98-107); GFR African American 89 mL/min; GFR Non-African American 74 mL/min; Glucose 207 mg/dL (74-106); Magnesium 1.8 mg/dL (1.6-2.6); Potassium 3.1 mmol/L (3.5-5.1); Sodium 144 mmol/L (136-145)
[2017-04-01 10:37] LABS: Platelet Estimate Adequate; RBC Morphology Normal
[2017-04-01 10:41] LABS: Alkaline Phosphatase 117 U/L (45-117); Bilirubin, Total 0.3 mg/dL (0.2-1.0); Total Protein 6.1 g/dL (6.4-8.2)
== END 2017-04-01 11:11 | disposition left against medical advice (07) ==
LOC: EDBD 09:39 → ER 09:43
DX: E11.65 Type 2 diabetes mellitus with hyperglycemia (principal); E11.22 Type 2 diabetes mellitus with diabetic chronic kidney disease; N18.6 End stage renal disease; I12.0 Hypertensive chronic kidney disease with stage 5 chronic kidney disease or end stage renal disease; F12.10 Cannabis abuse, uncomplicated; F14.10 Cocaine abuse, uncomplicated; E87.6 Hypokalemia; E44.0 Moderate protein-calorie malnutrition; Z68.31 Body mass index [BMI] 31.0-31.9, adult
CPT/HCPCS: 36415; 80053; 81001; 83735; 84484; 85025; 93005

== ENCOUNTER 2017-04-01 12:15 | Emergency (ER) | payer MEDICAID ==
[~2017-04-01] VITALS: Ht 160 cm; Wt 85.7 kg
[2017-04-01 14:03] VITALS: BP 118/76
[2017-04-01] MEDS ORDERED: POTASSIUM CHL 10% (20 MEQ/15ML) ORAL SOLN PO ONE (14:15)
== END 2017-04-01 14:13 | disposition home or self-care (01) ==
LOC: ER 12:18
DX: J20.9 Acute bronchitis, unspecified (principal); I12.0 Hypertensive chronic kidney disease with stage 5 chronic kidney disease or end stage renal disease; N18.6 End stage renal disease; E11.65 Type 2 diabetes mellitus with hyperglycemia; E11.22 Type 2 diabetes mellitus with diabetic chronic kidney disease; F12.10 Cannabis abuse, uncomplicated; F14.10 Cocaine abuse, uncomplicated; E87.6 Hypokalemia; E44.0 Moderate protein-calorie malnutrition; Z68.33 Body mass index [BMI] 33.0-33.9, adult
CPT/HCPCS: 71020

== ENCOUNTER 2017-09-03 09:17 | Emergency (ER) | payer MEDICAID ==
[~2017-09-03] VITALS: Ht 160 cm; Wt 90.7 kg
[2017-09-03 09:23] VITALS: BP 142/80
== END 2017-09-03 10:23 | disposition home or self-care (01) ==
LOC: EDBD 09:17 → ER 09:17
DX: M79.1 Myalgia (principal); E11.22 Type 2 diabetes mellitus with diabetic chronic kidney disease; N18.6 End stage renal disease; I10 Essential (primary) hypertension; F11.10 Opioid abuse, uncomplicated; F12.10 Cannabis abuse, uncomplicated; Z98.51 Tubal ligation status

== ENCOUNTER 2017-09-06 12:16 | Emergency (ER) | payer MEDICAID ==
[~2017-09-06] VITALS: Ht 167.6 cm; Wt 81.6 kg
[2017-09-06 12:50] LABS: Basophils # (auto) 0 uL; Basophils % (auto) 0.4 % (0.0-2.0); Eosinophils # (auto) 0.1 uL; Eosinophils % (auto) 2.2 % (0.0-7.0); Hematocrit 39.5 % (36.0-46.0); Lymphocytes # (auto) 2.1 uL; Lymphocytes % (auto) 40.2 % (10.0-50.0); Mean Corpuscular Hemoglobin 28.2 pg (28.0-32.0); Mean Corpuscular Hgb Conc. 32.8 g/dL (32.0-36.0); Mean Corpuscular Volume 85.9 fL (80.0-100.0); Mean Platelet Volume 7.6 fL (6.9-10.8); Monocytes # (auto) 0.3 uL; Monocytes % (auto) 5.8 % (0.0-12.0); Neutrophils # (auto) 2.7 uL; Neutrophils % (auto) 51.4 % (37.0-80.0); Nucleated Red Blood Cells % 0.1 %; Platelet Count (auto) 243 10^3/uL (140-450); Red Cell Distribution Width 15.2 % (11.8-14.3); White Blood Cell 5.2 10^3/uL (4.4-10.8)
[2017-09-06 13:02] LABS: Albumin 3.3 g/dL (3.4-5.0); BUN/Creatinine Ratio 6.8; Calcium 8.5 mg/dL (8.5-10.1); Potassium 3.8 mmol/L (3.5-5.1)
[2017-09-06 13:05] LABS: Bilirubin, Total 0.3 mg/dL (0.2-1.0); Total Protein 6.8 g/dL (6.4-8.2)
[2017-09-06 15:39] LABS: Urine Bilirubin Negative (Negative); Urine Blood Negative /uL (Negative); Urine Color Yellow (Yellow); Urine Glucose 3+ mg/dL (Normal); Urine Ketone 1+ (Negative); Urine Mucus FEW (None Seen); Urine Nitrite Negative (Negative); Urine RBC <1 /hpf (0 - 4); Urine Squamous Epithelial Cell MOD /hpf (<5); Urine Urobilinogen Normal (Negative)
[2017-09-06] MEDS ORDERED: KETOROLAC TROMETH 60MG/2ML VIAL IM ONE (16:30)
[2017-09-06] MEDS ORDERED: DEXAMETHASONE SOD PHOS 10MG/1ML VIAL INJ IM ONE (16:30)
[2017-09-06 17:19] VITALS: BP 154/73
== END 2017-09-06 17:21 | disposition home or self-care (01) ==
LOC: ER 12:16 → EDBD 12:16 → EDUNIT# 12:16 → ER 17:21
DX: M79.605 Pain in left leg (principal); M54.9 Dorsalgia, unspecified; R10.9 Unspecified abdominal pain; E11.22 Type 2 diabetes mellitus with diabetic chronic kidney disease; I12.0 Hypertensive chronic kidney disease with stage 5 chronic kidney disease or end stage renal disease; N18.6 End stage renal disease
CPT/HCPCS: 36415; 74176; 80053; 81001; 82150; 83690; 85025; 96372; 99285; J1100; J1885

== ENCOUNTER 2017-09-09 15:25 | Emergency (ER) | payer MEDICAID ==
[~2017-09-09] VITALS: Ht 167.6 cm; Wt 79.8 kg
[2017-09-09 16:00] VITALS: BP 168/90
[2017-09-09] MEDS ORDERED: CARISOPRODOL 350 MG TAB PO ONE (16:30)
== END 2017-09-09 16:24 | disposition home or self-care (01) ==
LOC: ER 15:25
DX: M25.562 Pain in left knee (principal); F31.9 Bipolar disorder, unspecified; F20.9 Schizophrenia, unspecified; I12.0 Hypertensive chronic kidney disease with stage 5 chronic kidney disease or end stage renal disease; E11.22 Type 2 diabetes mellitus with diabetic chronic kidney disease; N18.6 End stage renal disease

== ENCOUNTER 2017-09-10 10:07 | Emergency (ER) | payer MEDICAID ==
[~2017-09-10] VITALS: Ht 160 cm; Wt 73.0 kg
[2017-09-10 14:35] VITALS: BP 145/93
[2017-09-10] MEDS ORDERED: traMADol HCL 50 MG TAB PO ONE (14:45)
== END 2017-09-10 15:10 | disposition home or self-care (01) ==
LOC: EDBD 10:07 → ER 10:07
DX: M79.605 Pain in left leg (principal); N18.6 End stage renal disease; I12.0 Hypertensive chronic kidney disease with stage 5 chronic kidney disease or end stage renal disease; E11.22 Type 2 diabetes mellitus with diabetic chronic kidney disease; F17.210 Nicotine dependence, cigarettes, uncomplicated
CPT/HCPCS: 93971

== ENCOUNTER 2017-10-14 20:27 | Observation (INO) | payer MEDICAID ==
[~2017-10-14] VITALS: Ht 160 cm; Wt 63.5 kg
[2017-10-14] MEDS ORDERED: SODIUM CHLORIDE 0.9% 500 ML IV ONE (20:45)
[2017-10-14] MEDS ORDERED: QUEtiapine FUMARATE 100 MG TAB PO ONE (21:00)
[2017-10-14 21:24] LABS: Basophils # (auto) 0.1 uL; Basophils % (auto) 0.5 % (0.0-2.0); Eosinophils # (auto) 0.1 uL; Eosinophils % (auto) 1.3 % (0.0-7.0); Hematocrit 41.8 % (36.0-46.0); Hemoglobin 13.9 g/dL (12.2-16.2); Lymphocytes # (auto) 4.4 uL; Lymphocytes % (auto) 47.1 % (10.0-50.0); Mean Corpuscular Hemoglobin 28.7 pg (28.0-32.0); Mean Corpuscular Hgb Conc. 33.3 g/dL (32.0-36.0); Monocytes # (auto) 0.5 uL; Monocytes % (auto) 5.4 % (0.0-12.0); Neutrophils # (auto) 4.2 uL; Neutrophils % (auto) 45.7 % (37.0-80.0); Nucleated Red Blood Cells % 0.1 %; Platelet Count (auto) 231 10^3/uL (140-450); Red Blood Cells 4.86 10^6/uL (4.0-5.20); Red Cell Distribution Width 14.5 % (11.8-14.3); White Blood Cell 9.3 10^3/uL (4.4-10.8)
[2017-10-14 21:41] LABS: Albumin 3.7 g/dL (3.4-5.0); BUN/Creatinine Ratio 13.8; Calcium 8.8 mg/dL (8.5-10.1); Potassium 3.5 mmol/L (3.5-5.1)
[2017-10-14 21:44] LABS: Bilirubin, Total 0.3 mg/dL (0.2-1.0); Total Protein 7.6 g/dL (6.4-8.2)
[2017-10-14 21:55] LABS: Acetaminophen < 2.0 ug/mL (10-30); Salicylate 2.1 mg/dL (2.8-20.0)
[2017-10-14 22:22] LABS: Urine Bacteria FEW /hpf (None Seen); Urine Blood Negative /uL (Negative); Urine Hyaline Cast FEW /lpf (0 - 2); Urine Mucus FEW (None Seen); Urine Specific Gravity 1.027 (1.001-1.035); Urine WBC 12 /hpf (0 - 5)
[2017-10-14 22:28] LABS: Alcohol, Urine < 3.0 mg/dL (0-5); Amphetamine Screen, Urine NEGATIVE (NEGATIVE); Barbiturate Scree,Urine NEGATIVE (NEGATIVE); Benzodiazephine Screen, Urine NEGATIVE (NEGATIVE); Cannabinoid Screen, Urine NEGATIVE (NEGATIVE); Cocaine Screen, Urine POSITIVE (NEGATIVE); Opiate Scree,Urine NEGATIVE (NEGATIVE); Phencyclidine Screen, Urine NEGATIVE (NEGATIVE)
[2017-10-15 00:26] VITALS: BP 105/68
== END 2017-10-15 02:00 | disposition home or self-care (01) | DRG 756 ==
LOC: ER 20:27 → OVERFLOW 22:33 → ER 10-15 02:00
PROVIDERS: ADMIT Emergency Medicine; ATTEND Emergency Medicine
DX: R45.851 Suicidal ideations (principal); G92 Toxic encephalopathy; I12.0 Hypertensive chronic kidney disease with stage 5 chronic kidney disease or end stage renal disease; N18.6 End stage renal disease; E11.22 Type 2 diabetes mellitus with diabetic chronic kidney disease; D89.9 Disorder involving the immune mechanism, unspecified; F41.9 Anxiety disorder, unspecified; F31.31 Bipolar disorder, current episode depressed, mild; F20.3 Undifferentiated schizophrenia; F17.210 Nicotine dependence, cigarettes, uncomplicated; F14.10 Cocaine abuse, uncomplicated; F19.10 Other psychoactive substance abuse, uncomplicated; Z91.19 Patient's noncompliance with other medical treatment and regimen; Z59.0 Homelessness
CPT/HCPCS: 36415; 80053; 80307; 80329; 81001; 85025; 93005; 99285; G0378; 96375